=== PATIENT | female | born 1980 | race Caucasian/White ===

== ENCOUNTER 2024-12-08 12:00 | Outpatient (RCR) | payer BC, SELFPAY ==
--- NOTE | 2024-08-09 12:12 | HP.OTEVAL ---
Patient's Visit Information Visit Information Visit Information: MONE ACOSTA is a 44 year old F, referred to Occupational Therapy by Dr. Edu Vallejo MD, with a diagnosis of paraplegic SCI/ thoracic myopathy. Date of Evaluation: 08/07/24 Occupational Therapist: Sonya Minaya, DERIAN/Aris, CHT Subjective Subjective: This 44 year old female was seen for OT eval with dx thoracic myelopathy with lower limb weakness, paraplegia following spinal cord injury. in W performed decompression sx Jun.17. 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 pt states she noticed symptoms of weakness of LE with ambulation- pt went to ER in May. had MRI completed on lumbar spine (Not thoracic) pt states she ended up going to different hospital due to incontinence issues and continued issues with ambulation- this was Jun.13. and ended up in sx of decompression at levels T9-12 myelopathy and T10. incomplete moderate spinal canal stenosis at C4-C5 Severe Narrowing of right lateral stenosis and canal stenosis with Disc bulging pt demo at [facility] for about 5- 6 weeks. D/C from there about two weeks ago. Currently living with her mom. has wc/ww/shower chair- two entry steps- so pt sits on bottom to get in and out of home as she is scared of using the kandace that are available. pt states her fingers are starting to get OA deformities pt state sever nerve conduction test about 6 months ago for her left UE for CTS was a summons server entrapment. pt states in three months she returns to her Neurologist, and she will have x-ray of her neck again at that time pt states she went to a RA about 4 months ago, but blood work was fine- pt has 10# BLT restrictions pt states she has noticed improvement in her bladder control and might still have some residual constipation with her bowels. currently ambulating short distance with WW. ADLs Comments: pt living with her mom at this time using ww wc and shower chair use of Rn Prior Authorization for dressing two entry steps to her mom home has ramp but pt is afraid of using ramp. mom and brother assist stairs Pain neck/tailbone: Current Pain Intensity: 6 Pain Intensity Range: 6 ROM ROM Comments: pt demo bilateral UB ROM is WFL noted pt sits in WC with shoulders rolled forward and head forward Strength Elbow: triceps R 10# L 10# biceps R 7# left 9# Clinical Research Manager: right 60# left 50# Lateral Pinch: right 18# left 14# Tripod Pinch: right 18# left 16# Strength Comments: pt demo with a decrease in left supervisor mail carriers and pinch strength Sensation Thumb: right/left 2.83 Index: right/left 2.83 Middle: right/left 2.83 Ring: right/left 2.83 Little: right/left 2.83 Quick DASH-Disab of Arm,Shoulder& Hand Quick DASH Score: 71.6650 Goals Goal:: pt will demo a increase in BUE strength by 10# on fit2 testing indicating increase in pts functional strength for mobility in 4 weeks pt will demo a increase in bilateral vp strategic partnerships strength by 15# to increase pts ind. with ADL s by d/c pt will demo the ability to lift small/med size objects in a variety of heights to simulate placing groceries away Goal:: pt will demo the ability to manipulate coins without dropping for money mtg by d.c Goal:: pt will demo understanding of using energy conservation mayte. for BADLs in 2 weeks. pt will demo good ww safety mayte. while performing simulated kitchen/laundry tasks in 4 weeks. Goal:: pt will report MOD I with LB dressing with use of reached /sock aide or dressing stick by d/c Goal:: pt will demo the ability to maneuver her wc with good ability and demo safe mayte. to perform on different abhinav for 300 feet in 4 weeks pt will demo the ability to understand use of WC on ramp to enter/exit home in 6 weeks. Goal:: pt will demo an increase in posture and core strength noted by increase alignment with sitting posture by d./c Rehabilitation General Assessment: Pt demo with residual core and UB strength limiting pts safe functional mobility- pt demo a need for skilled OT services 3x week for 8 weeks for pt to reach maximal rehab potential. OT will focus on pts safe functional mobility with using ww due to limited LE sensation- ed. pt on energy conservation mayte. to ensure safe performance of bathing/dressing and meal perp- Therapist will also work on core and postural strengthening working within her lifting precautions BLT- once they are lifted therapy will continue to improve pts functional strength to return to a ERUM level with ADLs and IADLs. Rehabilitation Potential: Good Anticipated Interventions Anticipated Interventions: A/AAROM/PROM, Strengthening, Joint Protection/Energy Conservation, Ergonomic Education, Dynamic Sitting Balance, Education re assistive Equipment, Education re Diagnosis and Home Program Visit Plan Frequency: 2-3x /Week Duration: 6 Weeks TEXT: Thank you for the opportunity to evaluate your patient. For Medicare and Medicare HMO plans, please review the plan of care and approve it. It will need to be FAXED BACK to us at [phone] for Medicare purposes. Please let me know if there are questions or concerns regarding this plan of care. Physician Signature: Date:
--- NOTE | 2024-08-15 16:17 | HP.PTEVAL_ITS ---
Patient's Visit Information Visit Information Visit Information: MONE ACOSTA is a 44 year old F referred to Physical Therapy by Dr. Edu Vallejo MD with a diagnosis of PARAPLEGIA FOLLOWING SPINAL CORD INJURY/THORACIC MYELOPATHY W/LE WEAKNESS. Date of Evaluation: 08/14/24 Physical Therapist: Tahmina Acuña PT, Cert MDT Visit Plan Frequency: 3x /Week Duration: 2-4 Months Plan: 10 LB LIFTING LIMIT. NO BENDING OR TWISTING. GAIT TRAINING. BALANCE TRAINING. KASEY LE ROM, STRETCHING AND STRENGTHENING. STAIR TRAINING. HEP INSTRUCTION. COORDINATION OF SERVICES WITH OT. CASE CONFERENCE THIS DATE WITH JACKSON LINDA. 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 Present symptoms: NECK AND TAILBONE PAIN. SORENESS IN MUSCLES ALONG ALL OF SPINE WHERE SURGERY WAS. INTERMITTENT PAIN IN HANDS. CONSTANT BRUNING, NUMBNESS AND TINGLING FROM THIGHS DOWN TO TOES. Present since: BEGINNING OF MAY. Pain Scale: WORST 7/10, LEAST 4/10 Currently: 5/10 Is it getting better, worse or staying the same: GETTING BETTER Commenced as a result of: NO APPARENT REASON Symptoms at onset: NUMBNESS IN BUTT WHEN WIPING Worse: SITTING, WALKING, PROPING LEGS UP, PUTTING FEET UP ON W/C FOOT RESTS, WALKING WITHOUT SHOES ON, BENDING Better: CHANGE OF POSITION, WEARING TENNIS SHOES (EVEN SLEEPING IN THEM), REACHING UP AND STRETCHING, OTC ALEVE Disturbed sleep: YES Previous history/Previous treatment: YEARS OF BACK PAIN BEFORE MAY 2024 (4-5 YEARS). HISTORY OF CHIROPRACTIC TREATMENT AND MASSAGE THERAPY BEFORE MAY 2024. Treatment this episode: DOS: 06/16/24 AT [facility] (DECOMPRESSION T-9-T12, T10 INCOMPLETE). D/C TO MOM'S HOME FROM [facility] IN [place] 07/26/24. Coughing/sneezing/straining: POSITIVE FOR INCREASED PAIN Gait: WALKING AROUND MOM'S HOUSE WITH WALKER. GETS OUT OF BREATH. GETTING BETTER - FEEL MORE LIKE I AM LEADING THE WALKER INSTEAD OF WALKER LEADING ME NOW. DROP FOOT R BEFORE SURGERY AND RIGHT AFTER BUT GOT BETTER AND NOW HAVING SOME TROUBLE AGAIN. PATIENT REPORTS WALKING AROUND BAREFOOT WEDNESDAY AND MAYBE THAT IS WHY. MOM STATES SHE HAS REALLY IMPROVED SINCE SHE HAS COME HOME. ONLY USING W/C WHEN SHE GETS TIRED NOW AND INITIALLY WAS USING W/C ALL THE TIME. EVEN STEPPING SIDEWAYS WITH WALKER TO GET IN AND OUT OF PLACES. STATES SHE HAS THE MOST TROUBLE STEPPING BACKWARDS AND SHE HAS TO REALLY THINK ABOUT IT. STATES SHE IS GETTING A LOT BETTER AT GETTING UP OUT OF CHAIRS TOO AND SOMETIMES GETS UP WITHOUT PUSHNG UP WITH HANDS MUCH TOO. Bowel or Bladder Dysfunction: TAKING FLOMAX. VOIDING ON OWN NOW. STATES SHE CAN FEEL WHEN SHE NEEDS TO GO. HAS A LITTLE CONSTIPATION BUT NO BOWEL OR BLADDER INCONTINENCE. Accidents: NO Unexplained weight loss: NO Imaging: MODERATE NARROWING C4-C5 AND SEVERE NARROWING C5-C6. REPEAT IMAGING OF NECK PLANNED IN 3 MONTHS. NO OTHER SURGERIES RECOMMENDED AT THIS TIME. PMH/Recent major surgery: HTN. KASEY CARPAL TUNNEL. OTHER: PATIENT IS FROM [place] BUT LIVING WITH MOM RIGHT NOW WHILE NEEDING HELP. BROTHER LIVES NEAR MOM AND CAN HELP TOO. 2 STEPS IN GARAGE INTO HOUSE WITH NO HANDRAIL. HAS RAMP BUT NOT USING IT. GOING OUT OF HOUSE SITS DOWN ON FLOOR, STANDS UP ON FIRST STEP AND USES WALKER TO STEP DOWN OTHER STEP WITH MOM HELPING. GOING BACK IN HAS MOM ON ONE SIDE AND BROTHER ON THE OTHER SIDE ONE STEP AT A TIME R LEG FIRST. Objective Objective: THIS PATIENT WAS BROUGHT BACK TO PT IN HER W/C BY HER MOM. PATIENT REPORTS THIS W/C IS A RENTAL AND VERY HARD TO MANEUVER. SHE HAS ORDERED A CUSTOM W/C BUT IT IS NOT EXPECTED TO ARRIVE FOR QUITE AWHILE YET. SHE STATES DIFFICULTY WITH THIS W/C IS ONE REASON WHY SHE IS NOT USING THE RAMP. SHE STATES SHE GETS SCARED IN THE W/C ON THE RAMP AND SHE ALSO WORRIES ABOUT IT BEING TOO MUCH FOR HER MOM TO PUSH HER. Sensory deficit: ALTERED SENSATION KASEY LE'S TO FEET. ROM deficit: KASEY HIP FLEXOR, HS AND CALF TIGHTNESS. Motor deficit: KAESY LE WEAKNESS GROSSLY 3- TO 3+/5 Core strength: POOR Palpation: TENDERNESS ALONG SPINE NEAR SURGERY SIGHT. TUG TIME: 50.88 SEC WITH FWW AND CG +1 WITH GAIT BELT 30 SEC STS TEST = 5 WITH KASEY UE ASSIST FROM CHAIR WITH NO FOAM ON CHAIR, UP TO WALKER AND CONTACT GUARD +1 WITH GAIT BELT. Balance/Special Test Scores Oswestry Low Back Score: 31 Lower Extremity Functional Score: 11 Goals Goal 1:: PATIENT WILL COMPLETE 8 STANDS IN 30 SECS WITH ONE UE ASSIST AND SBA TO DEMONSTRATE IMPROVED FUNCTIONAL STRENGTH AND BALANCE. Goal Time Frame: 4-6 Weeks Goal 2:: PATIENT WILL COMPLETE TUG IN < 30 SECS WITH FWW AND SUPERVISION +1 TO DEMONSTRATE IMPROVED GAIT STABILITY. Goal Time Frame: 2-4 Weeks Goal 3:: PATIENT WILL BE ABLE TO WALK FOR AT LEAST 10 MINUTES WITH FWW AND WITHOUT AGGREVATION OF SYMPTOMS > 0-3/10 PAIN TO IMPROVE ADL TOLERANCE AND PERFORMANCE. Goal Time Frame: 4-6 Weeks Goal 4:: PATIENT WILL ASCEND AND DESCEND 2 STEPS WITH STEP TO PATTERN WITH ONE HR TO BE ABLE TO MORE INDEP'LY AND SAFELY ENTER AND EXIT MOM'S HOME. Goal Time Frame: 2-4 Weeks Goal 5:: PATIENT WILL BE INDEP WITH HEP. Goal Time Frame: 4-6 Weeks Goal 6:: PATIENT WILL BE ABLE TO SAFELY RETURN BACK TO HOME IN [place] Goal Time Frame: 12-16 Weeks Rehabilitation Potential Physical Therapy Diagnosis: TRUNK AND KASEY LE STIFFNESS AND WEAKNESS IMPAIRING GAIT AND ADL'S Rehabilitation Potential: Good Anticipated Interventions Patient/Client Instruction: Educate patient on: Condition, Plan of Care and Risk Factors For the Purpose of:: To improve self management Therapeutic Exercise to Include: Strength training, Balance training, Coordination, Body mechanics, Postural training, Flexibilty training, Gait and locomotor training, Neuromotor development, Passive ROM, Active ROM and Dynamic Lumbar Stabilization For the Purpose of:: To decrease pain, To decrease swelling/inflammation, To improve muscle performance and motor function, To increase tolerance to activity/condition/position, To improve performance and independence with ADL's, To decrease level of supervision to perform tasks, To improve ability of physical actions for home/community/work/leisure, To improve gait and locomotor functions, To increase flexibility/ROM, To improve endurance, To improve balance, To improve safety with gait and To improve self management Text: Thank you for the opportunity to evaluate your patient. For Medicare and Medicare HMO plans, please review the plan of care and approve it. It will need to be FAXED BACK to us at [phone] for Medicare purposes. For Medicare only, by signing this I certify the plan of care. Please let me know if there are questions or concerns regarding this plan of care. Physician Signature: Date:
--- NOTE | 2024-09-11 13:06 | OTREVAL_ITS ---
Re-Evaluation Intro: Dr. Edu Vallejo MD, It has been my pleasure to treat MONE ACOSTA over the last 13 visits for paraplegic SCI/ thoracic myopathy. Please see the progress note below for an update on the occupational therapy plan of care! Subjective Subjective: pt arrives from PT: states she is on 900 MG of gabapentin a day. pt states arm and hand pain in better- pt states she is able to blow dry her hair- states she is dressing with use of Electrical Design Technician for LB dressing and picking items up off the floor- states she is IND with tsf of shower states starting doing laundry doing dishes initiate meal prep with sitting and getting drinks by herself- pt states now getting dressed and showering it does take longer- Objective Objective/Function: shoulder flexion R 20# Left 17# shoulder ext. right 30# left 34# triceps R initial 10# current 32# L initial 10# current 34# biceps R initial 7# current 38# left initial 9# current 32# Clerk Guide: right 60# current 65#left 50#current 65# Lateral Pinch: right 18# current 20# left 14#current 18# Tripod Pinch: right 18# current 20# left 16# current 18# Plan Plan Frequency: 2-3x /Week Duration: 6 Weeks Visits in this POC: 6 weeks (2-3x week) Plan: initiate gym eq. with use of her rollator for transition to health and wellness program when she returns home. Continue POC: 4weeks (2-3x week) Goals Goals Patient Goals: Regain Mobility, Use Hand/Wrist/Arm Normally Again, Be More Independent in ADLS and Resume Former Household Responsibilities (Cooking,Cleaning,Yard, etc.) Goal:: pt will demo a increase in BUE strength by 10# on fit2 testing indicating increase in pts functional strength for mobility in 4 weeks (goal met) pt will demo a increase in bilateral welding machine operator electro gas strength by 15# to increase pts ind. with ADL s by d/c (right progressing Left goal met) pt will demo the ability to lift small/med size objects in a variety of heights to simulate placing groceries away (progressing) Goal:: pt will demo the ability to manipulate coins without dropping for money mtg by d.c (progressing) Goal:: pt will demo understanding of using energy conservation mayte. for BADLs in 2 weeks. (goal met) pt will demo good ww safety mayte. while performing simulated kitchen/laundry tasks in 4 weeks. (goal met) Goal:: pt will report MOD I with LB dressing with use of reached /sock aide or dressing stick by d/c ( goal met) Goal:: pt will demo the ability to maneuver her wc with good ability and demo safe mayte. to perform on different abhinav for 300 feet in 4 weeks (goal met) pt will demo the ability to understand use of WC on ramp to enter/exit home in 6 weeks. (goal met) Goal:: pt will demo an increase in posture and core strength noted by increase alignment with sitting posture by d./c (progressing ) Anticipated Interventions Anticipated Interventions Anticipated Interventions: A/AAROM/PROM, Strengthening, Joint Protection/Energy Conservation, Ergonomic Education, Dynamic Sitting Balance, Education re assistive Equipment, Education re Diagnosis and Home Program Re-Evaluation Ending Re-evaluation ending: Please do not hesitate to contact me at [phone] by phone or if you have questions or concerns regarding this new plan of care! Sincerely, Sonya Minaya, JACKSONR/L, CHT
--- NOTE | 2024-10-16 19:53 | HP.PTREVAL ---
Re-Evaluation Intro: Dr. Edu Vallejo MD, It has been my pleasure to treat MONE ACOSTA over the last 26 visits for PARAPLEGIA FOLLOWING SPINAL CORD INJURY/THORACIC MYELOPATHY W/LE WEAKNESS. Please see the progress note below for an update on the physical therapy plan of care! Subjective Subjective: PATIENT REPORTS SHE FEELS LIKE SHE IS WALKING WITH BETTER HEEL TOE AND LESS STIFF KNEE. WALKED FOR 10 MINUTES IN THE STORE WITH HER WITHOUT HER WALKER (NO CANE OR ANY AD) THE OTHER DAY TOO. SHE REPORTS THERE ARE TIMES SHE CAN FEEL HER FEET NOW. SHE REPORTS SHE HAS TRIED TO DECREASE HER GABAPENTIN SEVERAL TIMES unsuccessfully SEVERAL TIMES AND HAS BEEN IN TOUCH WITH HER DOCTOR ABOUT IT. FOLLOW UP PENDING WITH NEURO IN ABOUT 2 WEEKS. AT THIS POINT SHE WOULD LIKE TO STAY WITH HER MOM AND CONTINUE REHAB HERE WITH US THROUGH THE END OF NOVEMBER. SHE STATES SHE IS HAPPY WITH HER REHAB AND DOESN'T HAVE ANY CONCERNS OR CHANGE REQUESTS. Objective Objective/Function: PATIENT WAS SEEN TODAY FOR RE-ASSESSMENT OF PROGRESS TOWARD THE SET PT GOALS AND THE NEED FOR FURTHER PHYSICAL THERAPY VS READINESS FOR DISCHARGE. THIS PATIENT IS MAKING GOOD PROGRESS WITH PT IN TERMS OF LE STRENGTH, GAIT AND BALANCE. SHE IS A GOOD CANDIDATE TO CONTINUE PT BASED ON PROGRESS MADE AND ROOM FOR FURTHER IMPROVEMENT. PATIENT IS AGREEABLE. UPON EXAM TODAY: Sensory deficit: ALTERED SENSATION KASEY LE'S TO FEET. PROPRIOCEPTION IS IMPROVING WITH PATIENT NOT STEPPING ON OPPOSITE FEET AT ALL TODAY AND DEMONSTRATING MUCH BETTER AWARENESS OF WHERE LEGS IN SPACE OPEN CHAIN WELL WHICH WILL BE GOOD FOR MOVING FOOT FROM GAS TO BREAK AND BACK WITH DRIVING. Motor deficit: HIP FLEX R 12.2, L 7.5 LBS HIP ABD R 10.2, L 18 LBS HIP EXT R 42.5, L 46.6 LBS KNEE FLEX R 27.9, L 27.5 LBS KNEE EXT R 37.8, L 29.8 LBS ANKLE DF R 12.7, L 16.2 LBS ANKLE PF R 19.7, L 18.7 LBS Core strength: FAIR TUG TIME: 16.81 SEC WITH FWW INDEP. TUG TIME: 19.58 SEC WITH CANE WITH CG WITH GAIT BELT. STEPS: INDEP GAIT UP AND DOWN STEPS RECIPROCALLY WITH TWO HR'S BUT REQUIRES MIN ASSIST +1 WITH GAIT BELT WITH ONE HR ESPECIALLY COMING DOWN. C/O L FOOT PAIN DESCENDING STEPS EVEN WITH 2 HR'S. 30 SEC STS TEST = 10 INDEP'LY WITH NO UE ASSIST AND NO FOAM ON CHAIR INDEP. Plan Plan Plan: CONTINUE PT 2-3 TIMES A WEEK THROUGH NOVEMBER 2024. NO LIFTING LIMIT OR RESTRICTIONS. GAIT AND BALANCE TRAINING INCLUDING STAIRS (CONTINUE TO WORK ON BENDING KNEES DURING SWING PHASE OF GAIT). CORE STRENGTHENING. KASEY LE ROM, STRETCHING AND STRENGTHENING (INCLUDING ANKLE STRENGTHENING AND PROPRIOCEPTIVE TRAINING KEEPING PAIN BETWEEN 0-3/10 AND TAKING H/O BONE SPURS INTO CONSIDERTION). HEP INSTRUCTION. COORDINATION OF SERVICES WITH OT. Balance/Gait/Functional tests Balance/Special Test Scores Oswestry Low Back Score: 21 Lower Extremity Functional Score: 25 Goals Goals Goal 1:: PATIENT WILL COMPLETE 8 STANDS IN 30 SECS WITH ONE UE ASSIST AND SBA TO DEMONSTRATE IMPROVED FUNCTIONAL STRENGTH AND BALANCE - Goal Met. New Goal - PATIENT WILL COMPLETE 10 STANDS IN 30 w/o UE ASSIST Indep'ly TO DEMONSTRATE IMPROVED FUNCTIONAL STRENGTH AND BALANCE. Goal Time Frame: 4-6 Weeks Goal Progress: Goal Met Goal 2:: PATIENT WILL COMPLETE TUG IN < 30 SECS WITH FWW AND SUPERVISION +1 TO DEMONSTRATE IMPROVED GAIT STABILITY - Goal Met. New Goal - PATIENT WILL COMPLETE TUG IN < 15 SECS WITH SC Indep'ly TO DEMONSTRATE IMPROVED GAIT STABILITY. Goal Time Frame: 4-6 Weeks Goal Progress: Goal Met Goal 3:: PATIENT WILL BE ABLE TO WALK FOR AT LEAST 10 MINUTES WITH FWW AND WITHOUT AGGREVATION OF SYMPTOMS > 0-3/10 PAIN TO IMPROVE ADL TOLERANCE AND PERFORMANCE. - Goal Met. New Goal - PATIENT WILL BE ABLE TO WALK FOR AT LEAST 10 MINUTES WITH SC AND WITHOUT AGGREVATION OF SYMPTOMS > 0-3/10 PAIN TO IMPROVE ADL TOLERANCE AND PERFORMANCE. Goal Time Frame: 4-6 Weeks Goal Progress: Progressing Goal 4:: PATIENT WILL ASCEND AND DESCEND 2 STEPS WITH STEP TO PATTERN WITH ONE HR TO BE ABLE TO MORE INDEP'LY AND SAFELY ENTER AND EXIT MOM'S HOME. Goal Time Frame: 2-4 Weeks Goal Progress: Progressing Goal 5:: PATIENT WILL BE INDEP WITH HEP. Goal Time Frame: 4-6 Weeks Goal Progress: Progressing Goal 6:: PATIENT WILL BE ABLE TO SAFELY RETURN BACK TO HOME IN [place] Goal Time Frame: 12-16 Weeks Goal Progress: Progressing Anticipated Interventions Anticipated Interventions Patient/Client Instruction: Educate patient on: Condition, Plan of Care and Risk Factors For the Purpose of:: To improve self management Therapeutic Exercise to Include: Strength training, Balance training, Coordination, Body mechanics, Postural training, Flexibilty training, Gait and locomotor training, Neuromotor development, Passive ROM, Active ROM and Dynamic Lumbar Stabilization For the Purpose of:: To decrease pain, To decrease swelling/inflammation, To improve muscle performance and motor function, To increase tolerance to activity/condition/position, To improve performance and independence with ADL's, To decrease level of supervision to perform tasks, To improve ability of physical actions for home/community/work/leisure, To improve gait and locomotor functions, To increase flexibility/ROM, To improve endurance, To improve balance, To improve safety with gait and To improve self management Re-Evaluation Ending Re-evaluation ending: Please do not hesitate to contact me at [phone] by phone or if you have questions or concerns regarding this new plan of care! Sincerely, Tahmina Acuña, PT, Cert MDT
--- NOTE | 2024-12-06 12:03 | HP.OTDCNRP_ITS ---
Patient Information Patient Information: MONE ACOSTA was seen in my office for initial evaluation on 08/07/24. The following Plan of Care was established for this patient: POC Established Initial Frequency: 2-3x /Week Initial Duration: 6 Weeks Plan: Patient discharged from OT at this time. Good progress made. Patient will be returning to her home in [place] and resume outpatient there. Anticipated Interventions Anticipated Interventions: A/AAROM/PROM, Strengthening, Joint Protection/Energy Conservation, Ergonomic Education, Dynamic Sitting Balance, Education re ass istive Equipment, Education re Diagnosis and Home Program Last Seen Last Seen: This patient was last seen in our office . Pertinent comments regarding their Occupational therapy will appear below: At this point I will be discontinuing this patient from occupational therapy. I would be happy to see this patient again in the future if found appropriate by the physician. Thank you! Nadia lFores
--- NOTE | 2024-12-08 11:35 | HP.OTDCSUM ---
Discharge Summary D/C Summary: It has been my pleasure to treat MONE ACOSTA under orders from Dr. Edu Vallejo MD, for the diagnosis of paraplegic SCI/ thoracic myopathy for a total of 40 visit(s). Please see the following information for a summary of their discharge status. Overall Improvement % Improvement: 95 Objective Objective/Function: L bicep 43.9# R bicep 48.6 L tricep 40.5# R tricep 40.7 L interior horticulturist 75# R interior horticulturist 80# L lateral 20# R lateral 22# L tripod 22# R tripod 22# 9 hole peg right 16.30 sec. left 16.50 sec. Goals Patient Goals: Regain Mobility, Use Hand/Wrist/Arm Normally Again, Be More Independent in ADLS and Resume Former Household Responsibilities (Cooking,Cleaning,Yard, etc.) Goal:: pt will demo a increase in BUE strength by 10# on fit2 testing indicating increase in pts functional strength for mobility in 4 weeks (goal met) pt will demo a increase in bilateral interior horticulturist strength by 15# to increase pts ind. with ADL s by d/c (goal met) pt will demo the ability to lift small/med size objects in a variety of heights to simulate placing groceries away (progressing) Goal:: pt will demo the ability to manipulate coins without dropping for money mtg by d.c (goal met) Goal:: pt will demo understanding of using energy conservation mayte. for BADLs in 2 weeks. (goal met) pt will demo good ww safety mayte. while performing simulated kitchen/laundry tasks in 4 weeks. (goal met) Goal:: pt will report MOD I with LB dressing with use of reached /sock aide or dressing stick by d/c ( goal met) Goal:: pt will demo the ability to maneuver her wc with good ability and demo safe mayte. to perform on different abhinav for 300 feet in 4 weeks (goal met) pt will demo the ability to understand use of WC on ramp to enter/exit home in 6 weeks. (goal met) Goal:: pt will demo an increase in posture and core strength noted by increase alignment with sitting posture by d./c (progressing ) Plan Plan: Patient discharged from OT at this time. Good progress made. Patient will be returning to her home in [place] and resume outpatient there. D/C Information Discharge Comments: pt agrees she will return to therapy in her home town. will cont. with a HEP. pt to use safety mayte. around large crowds. d/c sentence: If there are questions or concerns regarding this patient's occupational therapy, please fell free to call me at [phone]. Thank you for the referral of this patient. Sincerely, Sonya Minaya, OTR/L, CHT
--- NOTE | 2024-12-08 12:55 | HP.PTDCSUM ---
Discharge Summary D/C summary: It has been my pleasure to treat MONE ACOSTA referred by Dr. 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 Discharge Date: 12/08/24 Please see the following information for a summary of their discharge status. Subjective Subjective: PATIENT STATES I FEEL LIKE I CAN FUNCTION INDEP'LY NOW. I CAN DRIVE AND GO UP AND DOWN STAIRS. I CAN VACUUM, I CAN MOP, I CAN CHANGE A FITTED SHEET. I CAN TURN AROUND MORE AUTOMATICALLY WITHOUT FEAR OF LOSING MY BALANCE, DO DISHES, CARRY THINGS (EVEN HEAVY SHELVES), GET OFF THE FLOOR WITHOUT HOLDING ONTO ANYTHING, BEND TO PUT THE COLLARS ON THE DOGS AND CARRY A CUP OF COFFEE WITHOUT SPILLING IT. PATIENT STATES SHE ISN'T USING ANY EXTENDERS IN THE SHOWER TO WASH HERSELF ANYMORE EITHER. PATIENT REPORTS SHE GETS OFF BALANCE IN THE SHOWER STANDING WHEN SHE CLOSES HER EYES AND WITH CURBS. THEREFORE USING SHOWER SEAT AND CANE IN PUBLIC. INTERMITTENT NECK PAIN 0-5/10. INTERMITTENT TAILBONE PAIN 0-6/10. MY BACK AND HIPS DON'T HURT ANYMORE. Pain BACK: Pain Intensity (Out of 10): 0 HIPS: Pain Intensity (Out of 10): 0 FEET: Pain Intensity (Out of 10): 0 NECK: Pain Intensity (Out of 10): 3 Overall Improvement % Improvement: 90 Objective Objective/Function: PATIENT WAS SEEN TODAY FOR RE-ASSESSMENT OF PROGRESS TOWARD THE SET PT GOALS AND THE NEED FOR FURTHER PHYSICAL THERAPY VS READINESS FOR DISCHARGE. THIS PATIENT IS MAKING GOOD PROGRESS WITH PT IN TERMS OF LE STRENGTH, GAIT AND BALANCE. SHE IS A GOOD CANDIDATE TO CONTINUE PT BASED ON PROGRESS MADE AND ROOM FOR FURTHER IMPROVEMENT. PATIENT IS AGREEABLE. UPON EXAM TODAY: Sensory deficit: ALTERED SENSATION KASEY LE'S TO FEET. PROPRIOCEPTION IS IMPROVING WITH PATIENT NOT STEPPING ON OPPOSITE FEET AT ALL TODAY AND DEMONSTRATING MUCH BETTER AWARENESS OF WHERE LEGS ARE IN SPACE OPEN CHAIN WELL WHICH HAS HELPED MOVING FOOT FROM GAS TO BREAK AND BACK WITH ACTIVITIES LIKE DRIVING AND STEPS. BETTER ECCENTRIC CONTROL ON STEPS KASEY BUT STILL WITH R HIP EXTENSION WEAKNESS > L. Motor deficit: HIP FLEX R 40.5, L 41.8 LBS HIP ABD R 63.1, L 65.3 LBS HIP EXT R 49.0, L 54.7 LBS KNEE FLEX R 59.2, L 57.1 LBS KNEE EXT R 69.7, L 64.6 LBS ANKLE DF R 32.6, L 36.8 LBS ANKLE PF R 64.7, L 60.0 LBS Core strength: FAIR TUG TIME: 9.76 SEC INDEP WITHOUT AD. STEPS: INDEP GAIT UP AND DOWN STEPS RECIPROCALLY WITH ONE HR. 30 SEC STS TEST = 15 INDEP'LY WITH INTERMITTENT UE ASSIST HANDS ON KNEES AND NO FOAM ON CHAIR. (LEFS NOT COMPLETED THIS DATE) Goals Goal 1:: PATIENT WILL COMPLETE 8 STANDS IN 30 SECS WITH ONE UE ASSIST AND SBA TO DEMONSTRATE IMPROVED FUNCTIONAL STRENGTH AND BALANCE - Goal Met. New Goal - PATIENT WILL COMPLETE 10 STANDS IN 30 w/o UE ASSIST Indep'ly TO DEMONSTRATE IMPROVED FUNCTIONAL STRENGTH AND BALANCE. Goal Progress: Goal Met Goal 2:: PATIENT WILL COMPLETE TUG IN < 30 SECS WITH FWW AND SUPERVISION +1 TO DEMONSTRATE IMPROVED GAIT STABILITY - Goal Met. New Goal - PATIENT WILL COMPLETE TUG IN < 15 SECS WITH SC Indep'ly TO DEMONSTRATE IMPROVED GAIT STABILITY. Goal Progress: Goal Met Goal 3:: PATIENT WILL BE ABLE TO WALK FOR AT LEAST 10 MINUTES WITH FWW AND WITHOUT AGGREVATION OF SYMPTOMS > 0-3/10 PAIN TO IMPROVE ADL TOLERANCE AND PERFORMANCE. - Goal Met. New Goal - PATIENT WILL BE ABLE TO WALK FOR AT LEAST 10 MINUTES WITH SC AND WITHOUT AGGREVATION OF SYMPTOMS > 0-3/10 PAIN TO IMPROVE ADL TOLERANCE AND PERFORMANCE. Goal Progress: Goal Met Goal 4:: PATIENT WILL ASCEND AND DESCEND 2 STEPS WITH STEP TO PATTERN WITH ONE HR TO BE ABLE TO MORE INDEP'LY AND SAFELY ENTER AND EXIT MOM'S HOME. Goal Progress: Goal Met Goal 5:: PATIENT WILL BE INDEP WITH HEP. Goal Progress: Goal Met Goal 6:: PATIENT WILL BE ABLE TO SAFELY RETURN BACK TO HOME IN [place] Goal Progress: Goal Met Plan Plan: D/C DUE TO PATIENT MOVING BACK TO [place]. PATIENT PLANS TO RESUME THERAPY CLOSE TO HOME. D/C Information d/c sentence: If there are questions or concerns regarding this patient's physical therapy, please feel free to call me at [phone]. Thank you for the referral of this patient. Sincerely, Tahmina Acuña, PT, Cert MDT Balance/Gait/Functional tests Balance/Special Test Scores Oswestry Low Back Score: 17 Lower Extremity Functional Score: 25 Improvement % Improvement: 90
== END 2024-12-08 19:00 | disposition home or self-care (01) ==
LOC: PT 12:00
PROVIDERS: Referring Provider Physical Medicine & Rehabilitation Sports Medicine; Visit Provider Physical Medicine & Rehabilitation Sports Medicine
DX: G82.20 Paraplegia, unspecified (principal)
CPT/HCPCS: 97110; 97116; 97140; 97162; 97166; 97530